=== PATIENT | female | born 2000 | race Caucasian/White ===

== ENCOUNTER 2022-02-27 15:57 | Day surgery (SDCO) | payer OTHER ==
[~2022-02-27] VITALS: Ht 165.1 cm; Wt 85.7 kg
[2022-02-27 16:56] LABS: BILIRUBIN NEGATIVE (NEGATIVE); BLOOD TRACE-INTACT Ery/uL (NEGATIVE); CLARITY CLEAR (CLEAR); COLOR YELLOW (YELLOW); GLUCOSE (U) NORMAL (NORMAL); LEUKOCYTES 3+ Leu/uL (NEGATIVE); NITRITE NEGATIVE (NEGATIVE); PROTEIN TRACE (LOW) mg/dL (NEGATIVE)
[2022-02-27 17:01] LABS: BACTERIA 1+; MUCOUS MODERATE; SQUAMOUS EPITHELIAL CELLS 20-50; URINARY RBC RARE; YEAST PRESENT
[2022-02-27 18:35] LABS: HGB 10.4 g/dl (12.5-16.0); MCH 26.1 pg (25.0-31.0); MCHC 31.5 g/dL (32.0-36.0); MCV 82.9 fL (78.0-100.0); MPV 12.1 fL (6.0-9.5); RBC 3.98 M/uL (4.20-5.40); RDW 14.6 % (11.5-14.0)
[2022-02-27 21:25] LABS: AMPHETAMINES NEGATIVE (NEGATIVE); BARBITURATES NEGATIVE (NEGATIVE); ECSTASY (MDMA) NEGATIVE (NEGATIVE); MARIJUANA (THC) NEGATIVE (NEGATIVE); METHADONE NEGATIVE (NEGATIVE); OPIATES NEGATIVE (NEGATIVE); OXYCODONE NEGATIVE (NEGATIVE)
[2022-02-27 21:26] LABS: BILIRUBIN NEGATIVE (NEGATIVE); BLOOD TRACE-INTACT Ery/uL (NEGATIVE); CLARITY CLEAR (CLEAR); COLOR YELLOW (YELLOW); GLUCOSE (U) NORMAL (NORMAL); LEUKOCYTES 3+ Leu/uL (NEGATIVE); NITRITE NEGATIVE (NEGATIVE); PROTEIN NEGATIVE (NEGATIVE); SPECIFIC GRAVITY <=1.005 (1.001-1.030); UROBILINOGEN 0.2 mg/dL (0.2-1.0); pH 6.5 (5.0-9.0)
[2022-02-27 21:36] LABS: BACTERIA 1+
[2022-02-27 21:37] LABS: AMORPHOUS URATES CRYSTALS LARGE; MUCOUS TRACE
[2022-02-28 08:46] LABS: GLUCOSE FASTING 91 mg/dL (70-105)
[2022-02-28 10:51] LABS: GLUCOSE 1 HOUR 151 mg/dL (120-170)
== END 2022-02-28 12:25 | disposition home or self-care (01) ==
LOC: FOB 15:57 → FOD 15:57 → FOB 15:58 → FOD 02-28 09:05 → FOB 02-28 09:06
PROVIDERS: Obstetrics & Gynecology; ADMIT Specialist
DX: O23.43 Unspecified infection of urinary tract in pregnancy, third trimester (principal); N39.0 Urinary tract infection, site not specified; O99.013 Anemia complicating pregnancy, third trimester; O09.33 Supervision of pregnancy with insufficient antenatal care, third trimester; Z3A.36 36 weeks gestation of pregnancy
CPT/HCPCS: 36415; 76805; 76818; 80305; 81001; 82951; 82952; 84112; 87070; 87088; G0378; J0690; J3105; J7120

== ENCOUNTER 2022-03-09 12:10 | Inpatient (IN) | payer OTHER ==
[~2022-03-09] VITALS: Ht 162.6 cm; Wt 90.7 kg
[2022-03-09 12:54] LABS: BILIRUBIN NEGATIVE (NEGATIVE); BLOOD NEGATIVE Ery/uL (NEGATIVE); CLARITY CLEAR (CLEAR); COLOR YELLOW (YELLOW); GLUCOSE (U) NORMAL (NORMAL); LEUKOCYTES NEGATIVE Leu/uL (NEGATIVE); NITRITE NEGATIVE (NEGATIVE); PROTEIN NEGATIVE (NEGATIVE); SPECIFIC GRAVITY 1.015 (1.001-1.030); UROBILINOGEN 0.2 mg/dL (0.2-1.0); pH 6.5 (5.0-9.0)
[2022-03-09 14:02] LABS: HCT 32.2 % (37.0-47.0); HGB 10.2 g/dl (12.5-16.0); MCH 25.8 pg (25.0-31.0); MCHC 31.7 g/dL (32.0-36.0); MCV 81.5 fL (78.0-100.0); MPV 12.2 fL (6.0-9.5); RBC 3.95 M/uL (4.20-5.40); WBC 14.6 K/uL (4.0-10.5)
[2022-03-09 14:57] LABS: ALBUMIN 2.8 g/dL (3.4-5.0); BILIRUBIN - TOTAL 0.2 mg/dL (0.2-1.0); BUN/CREAT RATIO (CALC) 13.8 RATIO; CREATININE 0.58 mg/dL (0.51-0.95); GLOBULIN (CALCULATION) 4.3 g/dL; POTASSIUM 3.9 mmol/L (3.5-5.1); TOTAL PROTEIN 7.1 g/dL (6.4-8.2)
[2022-03-10 07:00] LABS: HGB 8.8 g/dl (12.5-16.0); MCH 26.1 pg (25.0-31.0); MCHC 31.4 g/dL (32.0-36.0); MCV 83.1 fL (78.0-100.0); MPV 11.7 fL (6.0-9.5); RBC 3.37 M/uL (4.20-5.40); RDW 15.5 % (11.5-14.0); WBC 14.2 K/uL (4.0-10.5)
[2022-03-12] MEDS ORDERED: FEOSOL325 MG PO (07:30)
[2022-03-12] MEDS ORDERED: PRENATAL FORMU1 EACH PO (07:31)
[2022-03-12] MEDS ORDERED: COLACE100 MG PO (07:31)
[2022-03-13 08:11] LABS: HBSAG SCREEN Negative (Negative); HIV AB/P24 AG SCREEN Non Reactive (Non Reactive)
== END 2022-03-12 13:30 | disposition home or self-care (01) | DRG 787 ==
LOC: FOD 12:10 → FOB 12:11 → FOD 12:43 → FOB 12:44
PROVIDERS: ADMIT Specialist
PROC: 10D00Z1 Extraction of Products of Conception, Low, Open Approach (ICD-10-PCS; principal; 2022-03-09 16:00)
DX: O34.211 Maternal care for low transverse scar from previous cesarean delivery (principal); D62 Acute posthemorrhagic anemia; O99.02 Anemia complicating childbirth; Z37.0 Single live birth; Z3A.37 37 weeks gestation of pregnancy; Z20.822 Contact with and (suspected) exposure to COVID-19; D50.9 Iron deficiency anemia, unspecified
CPT/HCPCS: 36415; 54150; 80053; 81003; 84112; 86762; 86787; 86850; 86900; 86901; 87340; 87389; 94010; J0690; J1200; J1580; J1885; J2274; J2405; J7120; U0002